=== PATIENT | female | born 1960 | race Hispanic/Latino ===

== ENCOUNTER 2018-08-28 04:46 | Emergency (ER) | payer OTHER ==
[2018-08-28] MEDS ORDERED: NAPROXEN 500 MG TABLET ONE (05:11)
[2018-08-28] MEDS ORDERED: DIPHENHYDRAMINE HCL 25 MG CAPSULE ONE (05:11)
[2018-08-28] MEDS ORDERED: ONDANSETRON ODT 4 MG TAB ONE (05:12)
== END 2018-08-28 05:52 | disposition home or self-care (01) ==
LOC: EDH 04:46
DX: G43.909 Migraine, unspecified, not intractable, without status migrainosus (principal); Z88.8 Allergy status to other drugs, medicaments and biological substances; Z90.710 Acquired absence of both cervix and uterus; Z90.49 Acquired absence of other specified parts of digestive tract
CPT/HCPCS: 99284; Q0163